=== PATIENT | female | born 1945 | race Caucasian/White ===

== ENCOUNTER → 2025-02-21 10:41 | Outpatient (REF) | payer OTHER, SELFPAY | LOC: RAD 10:41 | PROVIDERS: ATTENDING PHYSICIAN Internal Medicine Gastroenterology; FAMILY PHYSICIAN Internal Medicine Geriatric Medicine | DX: R13.10 Dysphagia, unspecified (principal) | CPT/HCPCS: 74221 ==

== ENCOUNTER 2025-03-17 06:16 | Day surgery (SDC) | payer OTHER, SELFPAY | END 2025-03-17 10:57 | disposition home or self-care (01) | LOC: GI 06:16 | PROVIDERS: ATTENDING PHYSICIAN Internal Medicine Gastroenterology; FAMILY PHYSICIAN Internal Medicine Geriatric Medicine | DX: R13.10 Dysphagia, unspecified (principal); K22.5 Diverticulum of esophagus, acquired; K29.80 Duodenitis without bleeding; K29.70 Gastritis, unspecified, without bleeding; Q39.9 Congenital malformation of esophagus, unspecified; K29.50 Unspecified chronic gastritis without bleeding; Z98.890 Other specified postprocedural states | CPT/HCPCS: 43239; 88305; 88342 ==

== ENCOUNTER 2025-06-17 06:20 | Day surgery (SDC) | payer OTHER, SELFPAY | END 2025-06-17 12:50 | disposition home or self-care (01) | LOC: GI 06:20 | PROVIDERS: ATTENDING PHYSICIAN Internal Medicine Gastroenterology; FAMILY PHYSICIAN Internal Medicine Geriatric Medicine | DX: R19.7 Diarrhea, unspecified (principal); K57.30 Diverticulosis of large intestine without perforation or abscess without bleeding; K52.9 Noninfective gastroenteritis and colitis, unspecified; K63.89 Other specified diseases of intestine; K62.89 Other specified diseases of anus and rectum; K64.8 Other hemorrhoids | CPT/HCPCS: 45380; 88305 ==